=== PATIENT | male | born 1980 | race Caucasian/White ===

== ENCOUNTER 2020-04-21 16:55 | Emergency (ER) | payer MEDICAID ==
[~2020-04-21] VITALS: Ht 182.9 cm; Wt 79.4 kg
[2020-04-21 17:05] VITALS: BP 122/84
[2020-04-21 17:32] LABS: Basophils # (auto) 0.1 10 ^3/uL (0-0.2); Basophils % (auto) 0.7 % (0.0-2.0); Eosinophils # (auto) 0.1 10 ^3/uL (0-0.8); Hemoglobin 15.8 g/dL (13.5-17.5); Lymphocytes % (auto) 23.9 % (10.0-50.0); Mean Corpuscular Hemoglobin 30.1 pg (28.0-32.0); Mean Corpuscular Volume 91.2 fL (80.0-100.0); Monocytes # (auto) 0.9 10 ^3/uL (0-1.3); Monocytes % (auto) 7.6 % (0.0-12.0); Neutrophils # (auto) 8.3 10 ^3/uL (1.6-8.6); Neutrophils % (auto) 66.8 % (37.0-80.0); Nucleated Red Blood Cells % 0.1 %; Platelet Count (auto) 276 10^3/uL (140-450); Red Blood Cells 5.26 10^6/uL (4.5-5.90); Red Cell Distribution Width 13.3 % (11.8-14.3); White Blood Cell 12.4 10^3/uL (4.4-10.8)
[2020-04-21 17:50] LABS: Albumin 4.6 g/dL (3.4-5.0); Anion Gap 10 (5-15); Blood Urea Nitrogen 22 mg/dL (7-18); Calcium 9.5 mg/dL (8.5-10.1); Carbon Dioxide 24 mmol/L (21-32); Chloride 105 mmol/L (98-107); Glucose 97 mg/dL (74-106); Potassium 3.8 mmol/L (3.5-5.1); Sodium 139 mmol/L (136-145)
[2020-04-21 17:56] LABS: Alanine Aminotransferase 30 U/L (16-61); Alkaline Phosphatase 63 U/L (45-117); Aspartate Aminotransferase 21 U/L (15-37); BUN/Creatinine Ratio 22.7; Bilirubin, Total 0.9 mg/dL (0.2-1.0); GFR African American 111 mL/min; GFR Non-African American 92 mL/min; Total Protein 8.8 g/dL (6.4-8.2)
== END 2020-04-21 22:15 | disposition left against medical advice (07) ==
LOC: ER 16:55
DX: R07.9 Chest pain, unspecified (principal); R00.2 Palpitations; Z53.21 Procedure and treatment not carried out due to patient leaving prior to being seen by health care provider
CPT/HCPCS: 36415; 80053; 84484; 85025; 93005

== ENCOUNTER 2020-05-06 04:19 | Emergency (ER) | payer MEDICAID ==
[~2020-05-06] VITALS: Ht 182.9 cm; Wt 83.9 kg
[2020-05-06 04:26] VITALS: BP 141/89
== END 2020-05-06 04:35 | disposition left against medical advice (07) ==
LOC: ER 04:19 → EDBD 04:19 → ER 04:35
DX: F19.10 Other psychoactive substance abuse, uncomplicated (principal); F15.10 Other stimulant abuse, uncomplicated; F10.20 Alcohol dependence, uncomplicated; Y90.9 Presence of alcohol in blood, level not specified

== ENCOUNTER 2020-07-15 17:18 | Emergency (ER) | payer MEDICAID ==
[~2020-07-15] VITALS: Ht 182.9 cm; Wt 81.6 kg
[2020-07-15 17:26] VITALS: BP 95/57
== END 2020-07-15 21:31 | disposition left against medical advice (07) ==
LOC: ER 17:18
DX: M79.89 Other specified soft tissue disorders (principal); Z53.21 Procedure and treatment not carried out due to patient leaving prior to being seen by health care provider

== ENCOUNTER 2020-07-17 09:12 | Emergency (ER) | payer MEDICAID ==
[~2020-07-17] VITALS: Ht 182.9 cm; Wt 83.9 kg
[2020-07-17 09:24] VITALS: BP 121/91
[2020-07-17] MEDS ORDERED: IBUPROFEN 800 MG TAB PO ONE (10:00)
== END 2020-07-17 10:23 | disposition home or self-care (01) ==
LOC: ER 09:12
DX: S93.402A Sprain of unspecified ligament of left ankle, initial encounter (principal); S93.401A Sprain of unspecified ligament of right ankle, initial encounter; K04.7 Periapical abscess without sinus; X58.XXXA Exposure to other specified factors, initial encounter; Y93.89 Activity, other specified; Y92.89 Other specified places as the place of occurrence of the external cause; Y99.8 Other external cause status
CPT/HCPCS: 73610

== ENCOUNTER 2020-07-20 01:12 | Emergency (ER) | payer MEDICAID ==
[~2020-07-20] VITALS: Ht 182.9 cm; Wt 86.2 kg
[2020-07-20 04:43] VITALS: BP 136/95
[2020-07-20] MEDS ORDERED: cefTRIAXone SOD 1,000 MG VL IM ONE (04:45)
[2020-07-20] MEDS ORDERED: KETOROLAC TROMETH 60MG/2ML VIAL IM ONE (04:45)
== END 2020-07-20 05:49 | disposition home or self-care (01) ==
LOC: ER 01:12
DX: S02.5XXA Fracture of tooth (traumatic), initial encounter for closed fracture (principal); K04.7 Periapical abscess without sinus; K02.9 Dental caries, unspecified; X58.XXXA Exposure to other specified factors, initial encounter; Y93.89 Activity, other specified; Y92.89 Other specified places as the place of occurrence of the external cause; Y99.8 Other external cause status
CPT/HCPCS: 96372; 99284; J0696; J1885